=== PATIENT | female | born 1985 | race Caucasian/White ===

== ENCOUNTER 2021-10-03 10:33 | Day surgery (SDC) | payer BC ==
[2021-10-01 15:53] VITALS: BMI 26.6
[2021-10-03] MEDS ORDERED: SODIUM CHLORIDE 0.9% 500 ML 500 ML IV ONE (10:52)
[2021-10-03 11:06] VITALS: TEMP 98.3
[2021-10-03] MEDS ORDERED: fentaNYL (PF) 50 MCG/ML 2 ML AMP ONE (12:16)
[2021-10-03] MEDS ORDERED: BENZOCAINE SPRAY 1 CAN MUCOUS MEM ONE (12:28)
[2021-10-03] MEDS ORDERED: fentaNYL (PF) 50 MCG/ML 2 ML AMP IV ONE (12:30)
[2021-10-03] MEDS ORDERED: MIDAZOLAM 2 MG/2 ML VIAL IV ONE ×2 (12:30→12:33)
[2021-10-03 14:03] VITALS: BP 102/65; PULSE 68; RESP 16
--- NOTE | 2021-10-03 18:14 | P.PCN ---
Date of Procedure: 10/03/21 Operative Findings: Transesophageal echocardiogram Performing physician Avinash Guadalupe MD. Indication Rule out atrial septal defect Complications None Level of sedation Moderate with sedation length of 12 minutes Procedure description After obtaining an informed consent the patient was brought to the transesophageal echocardiogram room. The pulse oximetry and heart rate monitors Subsequently the patient was turned into left latee patient throat was sprayed using lidocaine. Subsequently after adequate conscious sedation the transesophageal echocardiogram was advanced thr ough the bite guard to the mid esophageal where a 2D echocardiogram as well as color Doppler and continuous wave Doppler and pulse-wav The procedure was performed without any complication Findings The left ventricular dimension and systolic function appeared to be within normal limits. The right ventricle appeared to be dilated. The right and left atrium are dilated. The left atrial appendage appeared to be intact. The interatrial septum appeared to have evidence of secundum atrial septal defect with bidirectional shunt. The aortic valve is trileaflet valve without stenosis or regurgitation. The mitral valve seems normal with mild MR. Normal tricuspid valve and pulmonic valve Conclusion 1. Second atrial septal defect with bidirectional shunt with predominantly [id number]-[id number] shunt 2. Dilated right ventricle and right atrium 3. Normal intracardiac valves 4. Intact left atrial appendage 5. No evidence of pericardial effusio
== END 2021-10-03 13:27 | disposition home or self-care (01) ==
LOC: CATHCVL 10:33
PROVIDERS: ATTEND Internal Medicine Interventional Cardiology
DX: Q21.1 Atrial septal defect (principal); I51.7 Cardiomegaly; Z20.822 Contact with and (suspected) exposure to COVID-19
CPT/HCPCS: 93312; 93325; 81025; 87635; J2250; J3010

== ENCOUNTER 2021-10-22 09:03 | Day surgery (SDC) | payer BC ==
[2021-10-20 16:18] VITALS: BMI 26.9
[~2021-10-22 09:03] MED LIST: ALPRAZolam 0.25 MG TAB PO PRN; ALPRAZolam 0.5 MG TAB PO PRN; ASPIRIN 325 MG TAB PO STA; ATORVASTATIN 80 MG TAB PO STA; HEPARIN SODIUM,PORCINE 10,000 UNIT in SODIUM CHLORIDE 0.9% 1,000 ML IRRIGATION PRN; HEPARIN SODIUM,PORCINE 2,500 UNIT in SODIUM CHLORIDE 0.9% 250 ML IRRIGATION PRN; NITROGLYCERIN SL TABS 0.4 MG TAB SUBLINGUAL PRN
[2021-10-22] MEDS ORDERED: SODIUM CHLORIDE 0.9% 1,000 ML IV ONE (09:33)
[2021-10-22 09:37] LABS: Basophils % (A) 1 %; Eosinophils # (A) 0.1 k/uL (0-0.7); Eosinophils % (A) 2 %; HCT 39.2 % (34.0-46.0); HGB 13.1 gm/dL (11.4-16.0); Lymphocytes # (A) 1.6 k/uL (1.0-4.8); Lymphocytes % (A) 39 %; MCH 32.3 pg (25.0-35.0); MCHC 33.5 g/dL (31.0-37.0); MCV 96.6 fL (80.0-100.0); Mean Platelet Volume 8.1; Monocytes # (A) 0.2 k/uL (0-1.0); Monocytes % (A) 4 %; Neutrophils # (A) 2.1 k/uL (1.3-7.7); Neutrophils % (A) 52 %; Platelet Count 158 k/uL (150-450); RBC 4.06 m/uL (3.80-5.40); RDW 12.2 % (11.5-15.5)
[2021-10-22] MEDS ORDERED: MIDAZOLAM 2 MG/2 ML VIAL IVP ONE (09:54)
[2021-10-22] MEDS: MIDAZOLAM 2 MG/2 ML VIAL IVP ONE ×2 (09:59→10:44)
[2021-10-22] MEDS ORDERED: LIDOCAINE 1% INJ 10MG/ML (30 ML VIAL-PF) SQ ONE (09:59)
[2021-10-22 10:03] LABS: African American GFR (CKD) >90 (>60 ml/min/1.73 sqM); Anion Gap 7 mmol/L; Blood Urea Nitrogen 12 mg/dL (7-17); Carbon Dioxide 28 mmol/L (22-30); Chloride 104 mmol/L (98-107); Glucose 80 mg/dL (74-99); Non-African American GFR(CKD) >90 (>60 ml/min/1.73 sqM); Potassium 3.7 mmol/L (3.5-5.1); Sodium 139 mmol/L (137-145)
[2021-10-22] MEDS ORDERED: HEPARIN SODIUM 1,000 UN/ML (10ML VL) IVP ONE ×2 (10:05→10:52)
[2021-10-22] MEDS ORDERED: HYDROmorphone 0.5 MG/0.5 ML SYRINGE IVP ONE (10:15)
[2021-10-22] MEDS ORDERED: MORPHINE SULFATE 4 MG/ML SYRINGE IVP ONE (11:09)
[2021-10-22] MEDS ORDERED: IOPAMIDOL-250 100ML BTL IV ONE (11:11)
[2021-10-22] MEDS ORDERED: CLOPIDOGREL 75 MG TAB PO ONE (11:20)
[2021-10-22] MEDS ORDERED: SODIUM CHLORIDE 0.9% 1,000 ML IV SCH (11:30)
[2021-10-22] MEDS ORDERED: ACETAMINOPHEN TAB 325 MG TAB PO PRN (14:16)
--- NOTE | 2021-10-22 14:31 | P.PCN ---
Date of Procedure: 10/22/21 Operative Findings: PERCUTANEOUS CLOSURE OF ATRIAL SEPTAL DEFECT PERFORMING PHYSICIAN: Avinash Guadalupe MD, [facility] PROCEDURE PERFORMED: 1. Successful percutaneous closure of fenestrated atrial septal defect (ASD) using 30 mm Amplatzer Occluder with an excellent results and without any residual shunt. 2. Intracardiac echocardiogram imaging. 3. Right atrial angiogram. 4. Ultrasound-guided access of the right common femoral vein 2 INDICATION: This is a 36-year-old female patient was diagnosed recently with secundum ASD. She was found to have the right side enlargement was RA and RV enlargement.. APPROACH: Right common femoral vein 2 COMPLICATION: None. LEVEL OF SEDATION: Moderate with sedation length of 45 minutes. PROCEDURE DESCRIPTION: After obtaining informed consent, the patient was brought to the cardiac medical laboratory technologist. The right common femoral vein was cannulated x2 using micropuncture technique under ultrasound guidance, the micropuncture wire passed easily, then I placed two 8-Australian sheath in the right groin. Subsequently I cannulated the left common femoral vein with the same technique and I placed an 8-Australian sheath there as well. At that point, anticoagulation was initiated using heparin and the patient was given a bolus of 4,000 units of heparin IV with continuous ACT monitoring throughout the procedure. After that, the intracardiac echocardiogram probe was advanced through one of the venous sheath all the way to the right atrium where we did interrogate the interatrial septum and identified the patent foramen ovale which was measured about 35 mm. Subsequently, I did cross the defect using 0.035 J-wire with the backup support of multipurpose catheter. The wire was advanced all the way to the left upper pulmonary vein and subsequently the catheter was advanced over the wire to the left upper pulmonary vein. The 0.035 J-wire was pulled out and then I advanced a talia wire. Subsequently, the multipurpose catheter was withdrawn out and the wire was left in the left upper pulmonary vein. After that, I did prep the Amplatzer PFO occluder under saline. The device was loaded into the filler shredding machine loader, which was attached to the sheath. Subsequently, I did exchange my 8-Australian sheath into the Shuttle sheath over a 0.035 talia wire. The sheath was advanced all the way under fluoroscopy guidance to the left atrium. Subsequently, the dilator of the sheath was withdrawn out along with the wire. After that, I did load the Amplatzer occluder under continuous saline flush to the sheath. The device was advanced all the way through the sheath were I did where I did deploy initially the left atrial occluder and then I pulled back the sheath and the left atrial occluder all the way to the interatrial septum and then I deployed the right atrial occluder after that. Before I released the device, I did interrogate the septum using ice images on multiple views. After I realized that the device was stable enough and in good position the device was released. Interrogation using ice was also performed after the device was released. By the end I did right atrial angiogram. The procedure was completed without any complication. POSTPROCEDURE MANAGEMENT: 1. Dual anti-platelet therapy. 2. An echo in 24 hours, in 1 week, in 4 weeks, as well as in 6 months.
[2021-10-22] MEDS: SODIUM CHLORIDE 0.9% 1,000 ML in EMPTY BAG 1 BAG IV SCH ×2 (18:53→18:54)
[2021-10-23 04:54] VITALS: RESP 18
--- NOTE | 2021-10-23 08:50 | XR ---
EXAMINATION TYPE: XR chest 2V DATE OF EXAM: 10/23/2021 COMPARISON: NONE TECHNIQUE: PA and lateral views submitted. HISTORY: ASD/PFO placement FINDINGS: The lungs are clear and there is no pneumothorax, pleural effusion, or focal pneumonia. There is a patent previous cardiac valve replacement. Heart size normal. No overt failure. Mild hyperexpansion o f the lungs correlate for asthma or COPD. IMPRESSION: 1. Postsurgical changes.
[2021-10-23] MEDS ORDERED: CLOPIDOGREL 75 MG TAB PO SCH (09:00)
[2021-10-23] MEDS ORDERED: ASPIRIN 325 MG TAB PO SCH (09:00)
[2021-10-23] MEDS: SODIUM CHLORIDE 0.9% 1,000 ML in EMPTY BAG 1 BAG IV SCH (09:21)
--- NOTE | 2021-10-23 09:33 | CA ---
Transthoracic Echo Report Name: Taylor Horn Age: 36 Gender: F : 1985 Exam Date: 10/23/2021 07:29 Exam Location: [facility] Ht (in): 69 Wt (lb): 182 Ordering Physician: Avinash Guadalupe MD ([id number]) Attending/Referring Phys: Lead Refiner Lisa Jackman RDCS Procedure CPT: Indications: Post ASD/PFO Insertion Cardiac Hx: Technical Quality: Good Contrast 1: Total Dose (mL): Contrast 2: Total Dose (mL): MEASUREMENTS (Male / Female) Normal Values FINDINGS Left Ventricle Left ventricular ejection fraction is estimated at 60-65 %. Right Ventricle Right Atrium Left Atrium Small bidirectional shunt seen at the atrial level. Mitral Valve Aortic Valve Tricuspid Valve Pulmonic Valve Pericardium Aorta CONCLUSIONS Normal left ventricular dimension and systolic function Stable interatrial occluder device No evidence of pericardial effusion Previewed by: Dr. Avinash Guadalupe MD (Electronically Signed) Final Date: 23 Oct 2021 09:32
[2021-10-23 09:35] VITALS: BP 95/63; PULSE 77; TEMP 98.4
--- NOTE | 2021-10-23 09:35 | P.DS ---
Providers Attending physician: Avinash uGadalupe Primary care physician: Gómez De La Cruz Assessment: The patient is a pleasant 36-year-old female patient was underwent yesterday successful percutaneous closure of atrial septal defect using 30 mm Amplatzer device with an excellent angiographic results and without any complication from right groin approach. She was seen this morning. The right groin is soft and nontender and with no bruises. The patient is asymptomatic and hemodynamically stable. She is going to be discharged home on dual antiplatelet therapy and I'll follow- up with the patient in a week in the office. Plan - Discharge Summary Discharge Rx Participant: Yes New Discharge Prescriptions: New Aspirin 325 mg PO DAILY #90 tab Clopidogrel Bisulfate [Plavix] 75 mg PO DAILY #90 tab Discharge Medication List Aspirin 325 mg PO DAILY #90 tab 10/23/21 [Rx] Clopidogrel Bisulfate [Plavix] 75 mg PO DAILY #90 tab 10/23/21 [Rx] Follow up Appointment(s)/Referral(s): Avinash Guadalupe MD [STAFF PHYSICIAN] - 1 Week
== END 2021-10-23 11:55 | disposition home or self-care (01) ==
LOC: CATHCVL 09:03 → 3SCARD 11:09 → CATHCVL 10-23 11:55
PROVIDERS: ATTEND Internal Medicine Interventional Cardiology
DX: Q21.1 Atrial septal defect (principal); I51.7 Cardiomegaly; Z79.02 Long term (current) use of antithrombotics/antiplatelets; Z79.82 Long term (current) use of aspirin; Z87.74 Personal history of (corrected) congenital malformations of heart and circulatory system
CPT/HCPCS: 93308; 93580; 93662; 86900; 86901; 80048; 85025; 86850; 81025; 87635; 71046; C1769 ×4; C1894; C1760; C1817; C1759; J2250; J2270; J0690; J2001; J1644; J1170; Q9966